=== PATIENT | female | born 1995 | race Caucasian/White ===

== ENCOUNTER 2018-01-26 16:54 | Emergency (ER) | payer OTHER ==
[2018-01-26 17:08] VITALS: O2SAT 100
[2018-01-26] MEDS ORDERED: Sodium Chloride 0.9% 1,000 ML IV STA (17:26)
--- NOTE | 2018-01-26 17:49 | ED PDOC ---
Arrival/HPI - General Chief Complaint: Rib Injury Time Seen by Provider: 01/26/18 16:59 Historian: Patient - History of Present Illness Narrative History of Present Illness (Text): 01/26/18 17:46 23 year old female, with no significant past medical history, who presents to the Emergency Department complaining of left lower rib pain and LUQ pain x 1.5 moths. Patient notes associated upper back pain worse with movement and substernal chest pain associated with the LUQ pain. Patient states there are no other exacerbating or relieving symptoms. Patient describes pain as a poking, pinching sensation. Patient denies any fever, chills, URI, recent illness, shortness of breath, nausea, vomiting, diarrhea, urinary symptoms, neck pain, headache, dizziness, alcohol use, smoking, recent travel, leg pain/swelling, OCP use, or any other complaints. Time/Duration: > month (1.5 months) Symptom Onset: Gradual Symptom Course: Worsening Activities at Onset: Light Past Medical History - Provider Review Nursing Documentation Reviewed: Yes - Psychiatric Hx Substance Use: No Family/Social History - Physician Review Nursing Documentation Reviewed: Yes Family/Social History: Unknown Family HX Smoking Status: Never Smoked Hx Alcohol Use: No Hx Substance Use: No Allergies/Home Meds Allergies/Adverse Reactions: Allergies No Known Allergies Allergy (Verified 01/26/18 17:05) Review of Systems - Physician Review All systems were reviewed & negative as marked: Yes - Review of Systems Constitutional: Normal Eyes: Normal ENT: Normal Respiratory: Normal. absent: SOB, Cough Cardiovascular: Chest Pain (substernal chest pain). absent: Palpitations Gastrointestinal: Abdominal Pain (LUQ pain). absent: Diarrhea, Nausea, Vomiting Genitourinary Female: Normal. absent: Dysuria, Frequency, Hematuria Musculoskeletal: Back Pain (upper back pain), Other (left lower rib pain) Skin: Normal. absent: Rash Neurological: Normal. absent: Headache, Dizziness Endocrine: Normal Hemo/Lymphatic: Normal Psychiatric: Normal Physical Exam Vital Signs Reviewed: Yes Vital Signs Temp Pulse Resp BP Pulse Ox 01/26/18 20:58 64 14 121/68 100 01/26/18 20:04 98.0 F 01/26/18 17:01 98.2 F 80 18 147/82 100 Temperature: Afebrile Blood Pressure: Normal Pulse: Regular Respiratory Rate: Normal Appearance: Positive for: Well-Appearing, Non-Toxic, Comfortable Pain Distress: None Mental Status: Positive for: Alert and Oriented X 3 - Systems Exam Head: Present: Atraumatic, Normocephalic Pupils: Present: PERRL Extroacular Muscles: Present: EOMI Conjunctiva: Present: Normal Mouth: Present: Moist Mucous Membranes Neck: Present: Normal Range of Motion Respiratory/Chest: Present: Clear to Auscultation, Good Air Exchange. No: Respiratory Distress, Accessory Muscle Use Cardiovascular: Present: Regular Rate and Rhythm, Normal S1, S2. No: Murmurs Abdomen: Present: Tenderness (LUQ tenderness). No: Distention, Peritoneal Signs Back: Present: Normal Inspection Upper Extremity: Present: Normal Inspection. No: Cyanosis, Edema Lower Extremity: Present: Normal Inspection. No: Edema Neurological: Present: GCS=15, CN II-XII Intact, Speech Normal Skin: Present: Warm, Dry, Normal Color. No: Rashes Psychiatric: Present: Alert, Oriented x 3, Normal Insight, Normal Concentration Medical Decision Making ED Course and Treatment: 01/26/18 17:52 Impression: 23 year old female presents to the Emergency Department complaining of lft lower rib pain and LUQ pain. Plan: -- EKG -- Labs -- Chest X-ray -- Pepcid -- Toradol -- Sodium Chloride -- Urine Culture -- UA -- POC Urine Prenancy Test -- Reassess and disposition Progress Notes: EKG : NSR at 63 bpm, no acute ST changes, as read by AMANDA. CXR : NAD, as read by AMANDA. Labs reviewed hgb 11, rest of the labs wnl, Uhcg (-), UA +small leuks, urine cx sent. On reevaluation, patient reports improvement of abdominal pain, denies any CP, back pain, N/V, she does c/o pressure like headache to her forehead. On exam, patient remains awake alert and oriented 3 in no acute distress. Abdomen soft minimal LUQ tenderness. Reglan 10 mg IV and benadryl 25 mg IV ordered. PA called to bedside as the patient is c/o throat discomfort with itchy rash to her neck which is starting to spread to the upper chest, which developed after IV benadryl was given, reglan still not given at this time. She denies any facial/tongue swelling, CP or SOB. Patient reports no history of any medication allergies. She also states that she has never taken any Benadryl or any other antihistamines in the past. Patient offered Solu-Medrol IV for allergic reaction to Benadryl, however the patient is refusing at this time. Lab, EKG and CXR results d/w the patient in great detail. Diagnosis of possible dyspepsia d/w the patient. Advised to follow up with primary care physician or referral provided in 1-2 days without fail. Advised to take medication as prescribed - pepcid for dyspepsia and prednisone for allergic reaction. Return to the emergency room at any time for any new or worsening symptoms. Patient states she fully agrees with and understands discharge instructions. States that she agrees with the plan and disposition. Verbalized and repeated discharge instructions and plan. I have given the patient opportunity to ask any additional questions. - Lab Interpretations Lab Results: 01/26/18 17:46 01/26/18 17:46 Lab Results 01/26/18 19:20: Urine Color Yellow, Urine Appearance Clear, Urine pH 6.0, Ur Specific [place] <= 1.005, Urine Protein Negative, Urine Glucose (UA) Negative, Urine Ketones Negative, Urine Blood Trace-intact H, Urine Nitrate Negative, Urine Bilirubin Negative, Urine Urobilinogen 0.2, Ur Leukocyte Esterase Trace H , Urine RBC 5 - 10, Urine WBC 5 - 10, Ur Epithelial Cells 6 - 8 01/26/18 17:46: Beta HCG, Quant < 2.39 01/26/18 17:46: Sodium 138, Potassium 3.6, Chloride 103, Carbon Dioxide 25, Anion Gap 13, BUN 12, Creatinine 0.6 L, Est GFR ( Amer) > 60, Est GFR ( Non-Af Amer) > 60, Random Glucose 87, Calcium 9.5, Magnesium 2.0, Total Bilirubin 0.9, AST 21, ALT 22, Alkaline Phosphatase 43, Total Protein 7.7, Albumin 4.7, Globulin 3.0, Albumin/Globulin Ratio 1.6, Lipase 71 01/26/18 17:46: WBC 4.5, RBC 3.91, Hgb 11.6 L, Hct 32.9 L, MCV 84.1, MCH 29.7, MCHC 35.3, RDW 12.3, Plt Count 257, MPV 10.8, Gran % 51.5, Lymph % (Auto) 36.5 H , [place] % (Auto) 10.5 H, Eos % (Auto) 1.3 L, Baso % (Auto) 0.2, Gran # 2.31, Lymph # (Auto) 1.6, [place] # (Auto) 0.5, Eos # (Auto) 0.1, Baso # (Auto) 0.01 - RAD Interpretation Radiology Orders: 01/26/18 17:27 CHEST TWO VIEWS (PA/LAT) [RAD] Stat - Medication Orders Current Medication Orders: Discontinued Medications Diphenhydramine HCl (Benadryl) 25 mg IVP STAT STA Stop: 01/26/18 19:15 Last Admin: 01/26/18 19:51 Dose: 25 mg IVP Administration Document 01/26/18 19:51 HI (Rec: 01/26/18 19:52 [id number]) Charges for Administration # of IVP Administrations 1 Famotidine (Pepcid) 20 mg IVP STAT STA Stop: 01/26/18 17:27 Last Admin: 01/26/18 17:51 Dose: 20 mg IVP Administration Document 01/26/18 17:51 HI (Rec: 01/26/18 17:51 [place] [id number]) Charges for Administration # of IVP Administrations 1 Sodium Chloride (Sodium Chloride 0.9%) 1,000 mls @ 1,000 mls/hr IV .Q1H STA Stop: 01/26/18 18:25 Last Admin: 01/26/18 17:50 Dose: 1,000 mls/hr eMAR Start Stop Document 01/26/18 17:50 HI (Rec: 01/26/18 17:50 [place] [id number]) Intravenous Solution Start Date 01/26/18 Start Time 17:50 Ketorolac Tromethamine (Toradol) 15 mg IVP STAT STA Stop: 01/26/18 17:27 Last Admin: 01/26/18 17:50 Dose: 15 mg MAR Pain Assessment Document 01/26/18 17:50 HI (Rec: 01/26/18 17:51 [place] [id number]) Pain Reassessment Is this a pain reassessment? No Sleep Is patient sleeping during reassessment? No Presence of Pain Presence of Pain Yes Location Left, Right or Bilateral Left Pain Location Body Site Breast Description Description Constant IVP Administration Document 01/26/18 17:50 HI (Rec: 01/26/18 17:51 [place] [id number]) Charges for Administration # of IVP Administrations 1 Methylprednisolone (Solu-Medrol) 125 mg IVP ONCE ONE Stop: 01/26/18 20:06 Last Admin: 01/26/18 20:14 Dose: Not Given Non-Admin Reason: Patient Refused Metoclopramide HCl (Reglan) 10 mg IVP STAT STA Stop: 01/26/18 19:15 Last Admin: 01/26/18 19:51 Dose: 10 mg IVP Administration Document 01/26/18 19:51 HI (Rec: 01/26/18 19:51 [place] [id number]) Charges for Administration # of IVP Administrations 1 - PA / [employer] / Resident Statement MD/DO has reviewed & agrees with the documentation as recorded. - Scribe Statement The provider has reviewed the documentation as recorded by the Scribe Clarice Fox All medical record entries made by the Scribe were at my direction and personally dictated by me. I have reviewed the chart and agree that the record accurately reflects my personal performance of the history, physical exam, medical decision making, and the department course for this patient. I have also personally directed, reviewed, and agree with the discharge instructions and disposition. Disposition/Present on Arrival - Present on Arrival Any Indicators Present on Arrival: No History of DVT/PE: No History of Uncontrolled Diabetes: No Urinary Catheter: No History of Decub. Ulcer: No History Surgical Site Infection Following: None - Disposition Have Diagnosis and Disposition been Completed?: Yes Diagnosis: Abdominal pain, Dyspepsia Disposition: HOME/ ROUTINE Disposition Time: 20:45 Patient Plan: Discharge Patient Problems: Current Active Problems Problem Status Onset Abdominal pain Acute Dyspepsia Acute Condition: STABLE Discharge Instructions (ExitCare): Dyspepsia, Acute Abdomen (Belly Pain) Additional Instructions: Thank you for letting us take care of you today. You were treated for mental pain, dyspepsia. The emergency medical care you received today was directed at your acute symptoms. If you were prescribed any medication, please fill it and take as directed. It may take several days for your symptoms to resolve. Return to the Emergency Department if your symptoms worsen, do not improve, or if you have any other problems. Please contact your doctor in 2 days for re-evaluation and follow up / or call one of the physicians/clinics you have been referred to that are listed on the Patient Visit Information form that is included in your discharge packet. Bring any paperwork you were given at discharge with you along with any medications you are taking to your follow up visit. Our treatment cannot replace ongoing medical care by a primary care provider (PCP) outside of the emergency department. Thank you for allowing the [facility] team to be part of your care today. If you had an X-Ray: A Radiologist will review the ED reading if any change in treatment is needed we will contact you. If you had a urine culture: It will take several days for the results, if any change in treatment is needed we will contact you. Prescriptions: Famotidine [Pepcid] 40 mg PO DAILY #20 tablet predniSONE [predniSONE Tab] 40 mg PO DAILY #8 tab Referrals: PCP,NO [Primary Care Provider] - [place] up with primary [facility] [place] - Follow up with primary Forms: [employer] (Algerian), WORK NOTE
[2018-01-26 18:16] LABS: ALB/GLOB RATIO 1.6 (1.1-1.8); ALBUMIN 4.7 g/dL (3.0-4.8); ALT/SGPT 22 U/L (7-56); AST/SGOT 21 U/L (14-36); BLOOD UREA NITROGEN 12 mg/dL (7-21); CALCIUM 9.5 mg/dL (8.4-10.5); GFR NON-AFRICAN AMERICAN > 60; LIPASE 71 U/L (23-300)
[2018-01-26 18:21] LABS: BASO # 0.01 K/mm3 (0.0-2.0); BASO % 0.2 % (0.0-3.0); EOS # 0.1 (0.0-0.7); EOS % 1.3 % (1.5-5.0); GRAN # 2.31 (1.4-6.5); GRAN % 51.5 % (50.0-68.0); HEMOGLOBIN 11.6 g/dL (12.0-16.0); LYMPH # 1.6 (1.2-3.4); LYMPH % 36.5 % (22.0-35.0); MEAN CELL VOLUME 84.1 fl (80.0-105.0); MEAN CORPUSCULAR HEMOGLOBIN 29.7 pg (25.0-35.0); MEAN CORPUSCULAR HGB CONC 35.3 g/dl (31.0-37.0); MEAN PLATELET VOLUME 10.8 fl (7.0-11.0); MONO # 0.5 (0.1-0.6); MONO % 10.5 % (1.0-6.0); RBC 3.91 10^6/uL (3.5-6.1); RED CELL DISTRIBUTION WIDTH 12.3 % (11.5-14.5); WHITE BLOOD COUNT 4.5 10^3/ul (4.5-11.0)
[2018-01-26] MEDS ORDERED: DiphenhydrAMINE 50 mg/ml Inj IVP STA (19:14)
[2018-01-26 19:43] LABS: URINE BILIRUBIN NEGATIVE (NEGATIVE); URINE BLOOD TRACE-INTACT (NEGATIVE); URINE GLUCOSE (UA) NEGATIVE (NEGATIVE); URINE LEUKOCYTE ESTERASE TRACE Leu/uL (NEGATIVE); URINE PROTEIN NEGATIVE mg/dL (<30 mg/dL); URINE UROBILINOGEN 0.2 E.U./dL (<1 E.U./dL)
[2018-01-26 19:46] LABS: URINE APPEARANCE CLEAR (CLEAR); URINE COLOR YELLOW (YELLOW)
[2018-01-26 20:04] VITALS: TEMP 98
[2018-01-26 20:59] VITALS: BP 121/68; PULSE 64; RESP 14
--- NOTE | 2018-01-27 07:58 | RAD ---
Date of service: 01/26/2018 HISTORY: LUQ, L rib pain COMPARISON: No prior. TECHNIQUE: Chest PA and lateral FINDINGS: LUNGS: No active pulmonary disease. PLEURA: No significant pleural effusion identified. No pneumothorax apparent. CARDIOVASCULAR: Normal. OSSEOUS STRUCTURES: No significant abnormalities. VISUALIZED UPPER ABDOMEN: Normal. OTHER FINDINGS: None. IMPRESSION: No active disease.
--- NOTE | 2018-01-27 19:57 | CARD ---
APPROVED REPORT Date of service: 01/26/2018 EKG Measurement Heart [id number] <Conclusion> Normal sinus rhythm with sinus arrhythmia Normal ECG
== END 2018-01-26 21:20 | disposition home or self-care (01) ==
LOC: ED 16:54
DX: R10.13 Epigastric pain (principal); R10.12 Left upper quadrant pain
CPT/HCPCS: 71046; 80053; 81001; 83690; 83735; 84702; 85025; 87086; 93005; 96374; 96375; 99284; J1200; J1885; J2765; J7030

== ENCOUNTER 2018-05-07 16:56 | Observation (INO) | payer OTHER ==
[2018-05-07] MEDS ORDERED: Sodium Chloride 0.9% 1,000 ML IV STA (17:50)
--- NOTE | 2018-05-07 19:06 | ED PDOC ---
Arrival/HPI - General Chief Complaint: Chest Pain Historian: Patient - History of Present Illness Narrative History of Present Illness (Text): 05/07/18 19:03 23 year old female, with no significant past medical history, presents to the emergency department complaining of diffuse abdominal pain and rib pain intermittently for 1 week. Patient report of secondary nausea, but denies any vomiting. Patient denies recent travel, fevers, chills, headache, dizziness, chest pain, shortness of breath, dyspnea on exertion, cough, blood in the stool or urine, diarrhea, back pain, neck pain, or any other complaint. Time/Duration: 1 week Symptom Course: Intermittent Activities at Onset: Light Context: Home Past Medical History - Provider Review Nursing Documentation Reviewed: Yes - Infectious Disease Hx of Infectious Diseases: None - Psychiatric Hx Substance Use: No Family/Social History - Physician Review Nursing Documentation Reviewed: Yes Family/Social History: No Known Family HX Smoking Status: Never Smoked Hx Alcohol Use: No Hx Substance Use: No Allergies/Home Meds Allergies/Adverse Reactions: Allergies diphenhydramine [From Benadryl] Allergy (Verified 05/08/18 04:06) ANAPHYLAXIS Review of Systems - Physician Review All systems were reviewed & negative as marked: Yes - Review of Systems Constitutional: absent: Fevers Respiratory: absent: SOB, Cough Cardiovascular: absent: Chest Pain Gastrointestinal: Abdominal Pain, Nausea. absent: Stool Changes, Diarrhea, Vomiting Genitourinary Female: absent: Dysuria, Hematuria Musculoskeletal: absent: Back Pain, Neck Pain Skin: absent: Rash Neurological: absent: Headache, Dizziness Physical Exam Vital Signs Reviewed: Yes Vital Signs Temp Pulse Resp BP Pulse Ox 05/07/18 16:57 98.8 F 96 H 18 111/73 100 Temperature: Afebrile Blood Pressure: Normal Pulse: Tachycardic Respiratory Rate: Normal Appearance: Positive for: Well-Appearing, Non-Toxic, Comfortable Pain Distress: None Mental Status: Positive for: Alert and Oriented X 3 - Systems Exam Head: Present: Atraumatic, Normocephalic Pupils: Present: PERRL Extroacular Muscles: Present: EOMI Conjunctiva: Present: Normal Mouth: Present: Moist Mucous Membranes Neck: Present: Normal Range of Motion Respiratory/Chest: Present: Clear to Auscultation, Good Air Exchange. No: Respiratory Distress, Accessory Muscle Use Cardiovascular: Present: Regular Rate and Rhythm, Normal S1, S2. No: Murmurs Abdomen: Present: Tenderness (diffusely tender to the left sided quadrant), Normal Bowel Sounds. No: Distention, Peritoneal Signs Back: Present: Normal Inspection Upper Extremity: Present: Normal Inspection. No: Cyanosis, Edema Lower Extremity: Present: Normal Inspection. No: Edema Neurological: Present: GCS=15, CN II-XII Intact, Speech Normal Skin: Present: Warm, Dry, Normal Color. No: Rashes Psychiatric: Present: Alert, Oriented x 3, Normal Insight, Normal Concentration Medical Decision Making ED Course and Treatment: 05/07/18 19:08 Impression: 23 year old female who presents to the emergency department complaining of abdominal pain and nausea. Plan: -- CT abdomen and Pelvis -- EKG -- Labs -- IV fluids -- Toradol -- Urine Culture -- Urinalysis -- Reassess and disposition Prior Visits: Notes and results from previous visits were reviewed. Progress Notes: 05/07/18 19:10 Signed out patient to Dr. Christine pending labs, CT, and reevaluation. - Lab Interpretations I have reviewed the lab results: Yes - RAD Interpretation Radiology Orders: 05/07/18 17:50 ABDOMEN & PELVIS [ABD PELVIS PO & IV CONTRAST] [CT] Stat - EKG Interpretation Interpreted by ED Physician: Yes Type: 12 lead EKG - Medication Orders Current Medication Orders: Discontinued Medications Sodium Chloride (Sodium Chloride 0.9%) 1,000 mls @ 999 mls/hr IV .Q1H1M STA Stop: 05/07/18 18:50 Ketorolac Tromethamine (Toradol) 30 mg IVP STAT STA Stop: 05/07/18 17:51 - Scribe Statement The provider has reviewed the documentation as recorded by the Rui Cunningham Provider Scribe Attestation: All medical record entries made by the Scribaubrie were at my direction and personally dictated by me. I have reviewed the chart and agree that the record accurately reflects my personal performance of the history, physical exam, medical decision making, and the department course for this patient. I have also personally directed, reviewed, and agree with the discharge instructions and disposition. Disposition/Present on Arrival - Present on Arrival Any Indicators Present on Arrival: No History of DVT/PE: No History of Uncontrolled Diabetes: No Urinary Catheter: No History of Decub. Ulcer: No History Surgical Site Infection Following: None - Disposition Have Diagnosis and Disposition been Completed?: Yes Diagnosis: Pancolitis Disposition: HOSPITALIZED Disposition Time: 19:00 Condition: GUARDED
--- NOTE | 2018-05-07 19:07 | ED PDOC ---
Physical Exam Vital Signs Temp Pulse Resp BP Pulse Ox 05/07/18 16:57 98.8 F 96 H 18 111/73 100 Medical Decision Making ED Course and Treatment: 05/07/18 19:[address] Anne pending labs, CT a/p, & reevaluation. 05/07/18 20:02 Labs reviewed with no evidence of leukocytosis noted. UA positive for esterases. Pending CT a/p 05/08/18 03:[address] Valencia(house staff) and medical instrument cable fabricator who accepts case onto the hospitalist service. - Lab Interpretations Lab Results: 05/07/18 18:40 05/07/18 18:40 Lab Results 05/07/18 19:25: Urine Color Yellow, Urine Appearance Clear, Urine pH 6.5, Ur Specific [place] 1.015, Urine Protein Negative, Urine Glucose (UA) Negative, Urine Ketones Negative, Urine Blood Negative, Urine Nitrate Negative, Urine Bilirubin Negative, Urine Urobilinogen 0.2, Ur Leukocyte Esterase Trace H, Urine RBC Pending, Urine WBC Pending 05/07/18 18:40: Sodium 137, Potassium 3.8, Chloride 106, Carbon Dioxide 23, Anion Gap 12, BUN 16, Creatinine 0.5 L, Est GFR ( Amer) > 60, Est GFR (Non-Af Amer) > 60, Random Glucose 83, Calcium 9.4, Magnesium 2.0, Total Bilirubin 0.8, AST 23, ALT 26, Alkaline Phosphatase 54, Lactate Dehydrogenase 298 L, Total Creatine Kinase 29 L, Troponin I < 0.01, Total Protein 7.8, Albumin 4.7, Globulin 3.2, Albumin/Globulin Ratio 1.5 05/07/18 18:40: WBC 8.2, RBC 4.26, Hgb 12.5, Hct 35.9 L, MCV 84.3, MCH 29.3, MCHC 34.8, RDW 12.1, Plt Count 258, MPV 10.8, Gran % 69.9 H, Lymph % (Auto) 22.4, [place] % (Auto) 7.0 H, Eos % (Auto) 0.6 L, Baso % (Auto) 0.1, Gran # 5.70, Lymph # (Auto) 1.8, [place] # (Auto) 0.6, Eos # (Auto) 0.1, Baso # (Auto) 0.01 I have reviewed the lab results: Yes - RAD Interpretation Radiology Orders: 05/07/18 17:50 ABDOMEN & PELVIS [ABD PELVIS PO & IV CONTRAST] [CT] Stat - Medication Orders Current Medication Orders: Discontinued Medications Sodium Chloride (Sodium Chloride 0.9%) 1,000 mls @ 999 mls/hr IV .Q1H1M STA Stop: 05/07/18 18:50 Ketorolac Tromethamine (Toradol) 30 mg IVP STAT STA Stop: 05/07/18 17:51 Disposition/Present on Arrival - Present on Arrival Any Indicators Present on Arrival: No History of DVT/PE: No History of Uncontrolled Diabetes: No Urinary Catheter: No History of Decub. Ulcer: No History Surgical Site Infection Following: None - Disposition Have Diagnosis and Disposition been Completed?: Yes Diagnosis: Pancolitis Disposition: HOSPITALIZED Disposition Time: 03:00 Patient Plan: Admission Condition: GUARDED
[2018-05-07 19:18] LABS: BASO # 0.01 K/mm3 (0.0-2.0); BASO % 0.1 % (0.0-3.0); EOS # 0.1 (0.0-0.7); EOS % 0.6 % (1.5-5.0); GRAN # 5.7 (1.4-6.5); GRAN % 69.9 % (50.0-68.0); HEMOGLOBIN 12.5 g/dL (12.0-16.0); LYMPH # 1.8 (1.2-3.4); LYMPH % 22.4 % (22.0-35.0); MEAN CELL VOLUME 84.3 fl (80.0-105.0); MEAN CORPUSCULAR HEMOGLOBIN 29.3 pg (25.0-35.0); MEAN CORPUSCULAR HGB CONC 34.8 g/dl (31.0-37.0); MEAN PLATELET VOLUME 10.8 fl (7.0-11.0); MONO # 0.6 (0.1-0.6); RBC 4.26 10^6/uL (3.5-6.1); RED CELL DISTRIBUTION WIDTH 12.1 % (11.5-14.5); WHITE BLOOD COUNT 8.2 10^3/uL (4.5-11.0)
[2018-05-07 19:34] LABS: PH,URINE 6.5 (4.7-8.0); URINE BILIRUBIN NEGATIVE (NEGATIVE); URINE BLOOD NEGATIVE (NEGATIVE); URINE GLUCOSE (UA) NEGATIVE (NEGATIVE); URINE LEUKOCYTE ESTERASE TRACE Leu/uL (NEGATIVE); URINE PROTEIN NEGATIVE mg/dL (<30 mg/dL); URINE UROBILINOGEN 0.2 E.U./dL (<1 E.U./dL)
[2018-05-07 19:34] LABS: ALB/GLOB RATIO 1.5 (1.1-1.8); ALBUMIN 4.7 g/dL (3.0-4.8); ALT/SGPT 26 U/L (7-56); AST/SGOT 23 U/L (14-36); BLOOD UREA NITROGEN 16 mg/dL (7-21); CALCIUM 9.4 mg/dL (8.4-10.5); GFR NON-AFRICAN AMERICAN > 60
[2018-05-07 19:36] LABS: URINE APPEARANCE CLEAR (CLEAR); URINE COLOR YELLOW (YELLOW)
[2018-05-07 19:43] LABS: TROPONIN I < 0.01 ng/mL
[2018-05-07] MEDS ORDERED: Iohexol 350 MG/100 ML VIAL ONE (19:52)
[2018-05-07] MEDS ORDERED: Iohexol 240 (50 ml) ONE (19:52)
[2018-05-07 20:17] LABS: URINE BACTERIA MOD /hpf; URINE RBC NEGATIVE /hpf (0-2)
--- NOTE | 2018-05-08 03:09 | CP.PCM.HP ---
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 Upon presentation patient reported she has been having worsening abdominal pain in her LLQ, RLQ, and RUQ over the past two weeks. She reported that the pain initially started 1month ago as intermittent however has now presented as chronic in nature. She describes the pain as a sharp sensation with some radiation into her chest/ sternum. She reported she had one episode of grossly bloody stool 1wk ago, denies any further episodes of bloody BM. She also reported episodes of N/V 3 days prior to admission. Denies any change in her apptetite, denies any worsening w/ food, denies any alleviating symptoms. Patient does not clain to have an yfevers or chills. Has not had any urinary discomfort, or diarrhea. She reports her menstrual cycle is regular and last menstruation was 3 weeks balbir or to admission. Remainder of 12 system ROS is otherwise negative PMD: None PMH: Fe Def, Vit D Def Allergies: BENADRYL- ANAPHYLAXIS Social: Denies EtOH, Smoking, Illicit Drugs Home Rx: Vit D PO OTC Present on Admission - Present on Admission Any Indicators Present on Admission: No Review of Systems - Review of Systems All systems: reviewed and no additional remarkable complaints except Review of Systems: as per HPI Past Patient History - Infectious Disease Hx of Infectious Diseases: None - Past Social History Smoking Status: Never Smoked - PSYCHIATRIC Hx Substance Use: No - SURGICAL HISTORY Hx Surgeries: No Meds Allergies/Adverse Reactions: Allergies Allergy/AdvReac Type Severity Reaction Status Date / Time diphenhydramine Allergy ANAPHYLAXIS Verified 05/08/18 04:06 [From Benadryl] Physical Exam - Constitutional Appears: Well, Non-toxic, No Acute Distress - Head Exam Head Exam: ATRAUMATIC, NORMOCEPHALIC - Eye Exam Eye Exam: EOMI, Normal appearance, PERRL - Respiratory Exam Respiratory Exam: Clear to Auscultation Bilateral, NORMAL BREATHING PATTERN - Cardiovascular Exam Cardiovascular Exam: RRR, +S1, +S2 - GI/Abdominal Exam GI & Abdominal Exam: Soft, Tenderness (LUQ, LLQ, RLQ ). absent: Distended, Guarding Additional comments: Marcano's negative No rebound tenderness - Extremities Exam Extremities exam: Positive for: normal inspection, pedal pulses present - Neurological Exam Neurological exam: Alert, CN II-XII Intact, Oriented x3 - Psychiatric Exam Psychiatric exam: Normal Affect, Normal Mood - Skin Skin Exam: Dry, Intact, Normal Color, Warm Results - Vital Signs Recent Vital Signs: Last Vital Signs Temp 98.8 F 05/07/18 16:57 Pulse 96 H 05/07/18 16:57 Resp 18 05/07/18 16:57 BP 111/73 05/07/18 16:57 Pulse Ox 100 05/07/18 16:57 - Labs Result Diagrams: 05/07/18 18:40 05/07/18 18:40 Labs: Laboratory Results - last 24 hr 05/07/18 05/07/18 05/07/18 18:40 18:40 19:25 WBC 8.2 RBC 4.26 Hgb 12.5 Hct 35.9 L MCV 84.3 MCH 29.3 MCHC 34.8 RDW 12.1 Plt Count 258 MPV 10.8 Gran % 69.9 H Lymph % (Auto) 22.4 [place] % (Auto) 7.0 H Eos % (Auto) 0.6 L Baso % (Auto) 0.1 Gran # 5.70 Lymph # (Auto) 1.8 Nash # (Auto) 0.6 Eos # (Auto) 0.1 Baso # (Auto) 0.01 Sodium 137 Potassium 3.8 Chloride 106 Carbon Dioxide 23 Anion Gap 12 BUN 16 Creatinine 0.5 L Est GFR ( Amer) > 60 Est GFR (Non-Af Amer) > 60 Random Glucose 83 Calcium 9.4 Magnesium 2.0 Total Bilirubin 0.8 AST 23 ALT 26 Alkaline Phosphatase 54 Lactate Dehydrogenase 298 L Total Creatine Kinase 29 L Troponin I < 0.01 Total Protein 7.8 Albumin 4.7 Globulin 3.2 Albumin/Globulin Ratio 1.5 Urine Color Yellow Urine Appearance Clear Urine pH 6.5 Ur Specific [place] 1.015 Urine Protein Negative Urine Glucose (UA) Negative Urine Ketones Negative Urine Blood Negative Urine Nitrate Negative Urine Bilirubin Negative Urine Urobilinogen 0.2 Ur Leukocyte Esterase Trace H Urine RBC Negative Urine WBC 10 - 15 H Ur Epithelial Cells 4 - 5 Urine Bacteria Mod Assessment & Plan - Assessment and Plan (Free Text) Assessment: Patient is a 23F w/ no significant PMH presented to [facility] on 05/08/18 w/ CC of abdominal pain. Plan: Abdominal Pain: Most likely 2/2 pancolitis vs ovarian cyst Afebrile, No leukocytosis, Abdomen Soft w/ mild tenderness on exam 05/07/17 - CTAP - Pancolitis + 1.5cm ovarian cyst NPO IVF - NS 100 cc/hr Start Flagyl 500mg Q8 Start Rocephin 1gm QD Stool occult blood Fecal Leukocyte GI Consulted, Dr. Encarnacion, [facility] Patient was seen, examined, discussed w/ attending Dr. 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 Admission Note - Date & Time Date: 05/08/18 Time: 03:27 <Arleth Valencia - Last Filed: 05/08/18 05:42> Results - Vital Signs Recent Vital Signs: Last Vital Signs Temp 97.9 F 05/08/18 03:22 Pulse 79 05/08/18 03:22 Resp 20 05/08/18 03:22 BP 116/69 05/08/18 03:22 Pulse Ox 100 05/08/18 03:22 - Labs Result Diagrams: 05/07/18 18:40 05/07/18 18:40 Labs: Laboratory Results - last 24 hr 05/07/18 05/07/18 05/07/18 18:40 18:40 19:25 WBC 8.2 RBC 4.26 Hgb 12.5 Hct 35.9 L MCV 84.3 MCH 29.3 MCHC 34.8 RDW 12.1 Plt Count 258 MPV 10.8 Gran % 69.9 H Lymph % (Auto) 22.4 [place] % (Auto) 7.0 H Eos % (Auto) 0.6 L Baso % (Auto) 0.1 Gran # 5.70 Lymph # (Auto) 1.8 Nash # (Auto) 0.6 Eos # (Auto) 0.1 Baso # (Auto) 0.01 Sodium 137 Potassium 3.8 Chloride 106 Carbon Dioxide 23 Anion Gap 12 BUN 16 Creatinine 0.5 L Est GFR ( Amer) > 60 Est GFR (Non-Af Amer) > 60 Random Glucose 83 Calcium 9.4 Magnesium 2.0 Total Bilirubin 0.8 AST 23 ALT 26 Alkaline Phosphatase 54 Lactate Dehydrogenase 298 L Total Creatine Kinase 29 L Troponin I < 0.01 Total Protein 7.8 Albumin 4.7 Globulin 3.2 Albumin/Globulin Ratio 1.5 Urine Color Yellow Urine Appearance Clear Urine pH 6.5 Ur Specific [place] 1.015 Urine Protein Negative Urine Glucose (UA) Negative Urine Ketones Negative Urine Blood Negative Urine Nitrate Negative Urine Bilirubin Negative Urine Urobilinogen 0.2 Ur Leukocyte Esterase Trace H Urine RBC Negative Urine WBC 10 - 15 H Ur Epithelial Cells 4 - 5 Urine Bacteria Mod Attending/Attestation - Attestation I have personally seen and examined this patient.: Yes I have fully participated in the care of the patient.: Yes I have reviewed all pertinent clinical information: Yes Notes (Text): 05/08/18 05:40 Patient was seen when she was in the ER in CODE Room. Medical record was reviewed. Agree with history , physical examination, assessment and plan.
[2018-05-08] MEDS: Sodium Chloride 0.9% 1,000 ML IV SCH (03:30)
[2018-05-08 03:46] VITALS: BMI 18.0
[2018-05-08] MEDS ORDERED: metroNIDAZOLE IV 500 mg/100 ml 500 MG/100 ML BAG IVPB SCH (06:00)
[2018-05-08 07:06] LABS: BASO # 0.01 K/mm3 (0.0-2.0); BASO % 0.2 % (0.0-3.0); EOS # 0.1 (0.0-0.7); EOS % 1.2 % (1.5-5.0); GRAN # 3.79 (1.4-6.5); GRAN % 57.7 % (50.0-68.0); HEMOGLOBIN 10.7 g/dL (12.0-16.0); LYMPH # 2.1 (1.2-3.4); LYMPH % 32.1 % (22.0-35.0); MEAN CELL VOLUME 84.2 fl (80.0-105.0); MEAN CORPUSCULAR HEMOGLOBIN 28.7 pg (25.0-35.0); MEAN CORPUSCULAR HGB CONC 34.1 g/dl (31.0-37.0); MEAN PLATELET VOLUME 10.4 fl (7.0-11.0); MONO # 0.6 (0.1-0.6); MONO % 8.8 % (1.0-6.0); RBC 3.73 10^6/uL (3.5-6.1); RED CELL DISTRIBUTION WIDTH 12.1 % (11.5-14.5); WHITE BLOOD COUNT 6.6 10^3/uL (4.5-11.0)
[2018-05-08 07:34] LABS: ALB/GLOB RATIO 1.4 (1.1-1.8); ALBUMIN 3.8 g/dL (3.0-4.8); ALT/SGPT 33 U/L (7-56); AST/SGOT 17 U/L (14-36); BLOOD UREA NITROGEN 12 mg/dL (7-21); CALCIUM 8.6 mg/dL (8.4-10.5); GFR NON-AFRICAN AMERICAN > 60
[2018-05-08] MEDS: Morphine 2 mg/ml ISec IVP PRN ×3 (08:47→19:51)
--- NOTE | 2018-05-08 09:09 | CARD ---
APPROVED REPORT Date of service: 05/07/2018 EKG Measurement Heart [id number] <Conclusion> Normal sinus rhythm with sinus arrhythmia RSR' Pattern V1,V2.
--- NOTE | 2018-05-08 09:30 | CP.PCM.CON ---
<Vijay Bob - Last Filed: 05/08/18 18:40> History of Present Illness - History of Present Illness History of Present Illness: Vijay Bob DO, PGY1. GI consult note for Dr Shashank Oliveira: diffuse abdominal pain 23 y/o female with PMH of vitamin D and iron deficiency (on supplements) [place] [facility] [place] diffuse abdominal pain x1 month and bloody diarrhea x1. Patient sates that her pain is diffuse mainly in lower abdomen b/l, 6-7/10, sharp/burning in quality, sporadic, lasts for few seconds, intermittent, no radiation, not related to food ingestion, no alleviating or e xacerbating factors and associated nausea. She reports having one episode of bloody diarrhea last week. Patient denied vomiting, hemetemesis, melena, fever, chills, abdominal distension, changes in bowel movement. She denied prior symptoms, NSAID use, recent travel or sick contacts. ROS reviewed with pertinent positives as above PMH: vitamin D and iron deficiency PSH: denied Meds: vitamin D, Iron All: diphenhydramine (anaphylaxis) SH: denies smoking, alcohol, drug use FH: no h/o colon ca. aunt with breast ca. uncle with lung ca Endo: never had EGD/CSPY Past Patient History - Infectious Disease Hx of Infectious Diseases: None - Past Social History Smoking Status: Never Smoked - CARDIAC Hx Cardiac Disorders: No - PULMONARY Hx Respiratory Disorders: No - NEUROLOGICAL Hx Neurological Disorder: No - HEENT Hx HEENT Problems: No - RENAL Hx Chronic Kidney Disease: No - ENDOCRINE/METABOLIC Hx Endocrine Disorders: No - HEMATOLOGICAL/ONCOLOGICAL Hx Blood Disorders: No - INTEGUMENTARY Hx Dermatological Problems: No - MUSCULOSKELETAL/RHEUMATOLOGICAL Hx Musculoskeletal Disorders: No Hx Falls: No - GASTROINTESTINAL Hx Gastrointestinal Disorders: No - GENITOURINARY/GYNECOLOGICAL Hx Genitourinary Disorders: No - PSYCHIATRIC Hx Substance Use: No - SURGICAL HISTORY Hx Surgeries: No Meds Allergies/Adverse Reactions: Allergies Allergy/AdvReac Type Severity Reaction Status Date / Time diphenhydramine Allergy ANAPHYLAXIS Verified 05/08/18 04:06 [From Benadryl] - Medications Medications: Current Medications Acetaminophen (Tylenol 325mg Tab) 650 mg PO Q6H PRN PRN Reason: Pain, Mild (1-3) Last Admin: 05/08/18 08:38 Dose: 650 mg Metronidazole (Flagyl) 500 mg in 100 mls @ 100 mls/hr IVPB Q8 [facility]; Protocol Last Admin: 05/08/18 05:48 Dose: 100 mls/hr Ceftriaxone Sodium (Rocephin 1 Gram Ivpb) 1 gm in 100 mls @ 100 mls/hr IVPB DAILY [facility]; Protocol Last Admin: 05/08/18 08:59 Dose: 100 mls/hr Sodium Chloride (Sodium Chloride 0.9%) 1,000 mls @ 100 mls/hr IV .Q10H [facility] Last Admin: 05/08/18 03:30 Dose: 100 mls/hr Morphine Sulfate (Morphine) 2 mg IVP Q4H PRN PRN Reason: Pain, severe (8-10) Last Admin: 05/08/18 08:47 Dose: 2 mg Ondansetron HCl (Zofran Inj) 4 mg IVP Q6H PRN PRN Reason: Nausea/Vomiting Last Admin: 05/08/18 08:47 Dose: 4 mg Pantoprazole Sodium (Protonix Inj) 40 mg IVP DAILY [facility] Last Admin: 05/08/18 08:55 Dose: 40 mg Physical Exam - Constitutional Appears: Well - Head Exam Head Exam: ATRAUMATIC, NORMAL INSPECTION, NORMOCEPHALIC - Eye Exam Eye Exam: EOMI, Normal appearance, PERRL Pupil Exam: NORMAL ACCOMODATION, PERRL - ENT Exam ENT Exam: Mucous Membranes Moist, Normal Exam - Neck Exam Neck exam: Positive for: Normal Inspection - Respiratory Exam Respiratory Exam: Clear to Auscultation Bilateral, NORMAL BREATHING PATTERN - Cardiovascular Exam Cardiovascular Exam: REGULAR RHYTHM, +S1, +S2. absent: Gallop, Rubs - GI/Abdominal Exam GI & Abdominal Exam: Normal Bowel Sounds, Soft. absent: Tenderness - Extremities Exam Extremities exam: Positive for: normal inspection - Back Exam Back exam: NORMAL INSPECTION - Neurological Exam Neurological exam: Alert, CN II-XII Intact, Oriented x3, Reflexes Normal - Psychiatric Exam Psychiatric exam: Normal Affect, Normal Mood - Skin Skin Exam: Dry, Intact, Normal Color, Warm Results - Vital Signs Recent Vital Signs: Last Vital Signs Temp 98 F 05/08/18 08:25 Pulse 70 05/08/18 08:25 Resp 18 05/08/18 08:25 BP 99/64 L 05/08/18 08:25 Pulse Ox 97 05/08/18 08:25 - Labs Result Diagrams: 05/08/18 06:45 05/08/18 06:45 Labs: Laboratory Results - last 24 hr 05/07/18 05/07/18 05/07/18 18:40 18:40 19:25 WBC 8.2 RBC 4.26 Hgb 12.5 Hct 35.9 L MCV 84.3 MCH 29.3 MCHC 34.8 RDW 12.1 Plt Count 258 MPV 10.8 Gran % 69.9 H Lymph % (Auto) 22.4 [place] % (Auto) 7.0 H Eos % (Auto) 0.6 L Baso % (Auto) 0.1 Gran # 5.70 Lymph # (Auto) 1.8 [place] # (Auto) 0.6 Eos # (Auto) 0.1 Baso # (Auto) 0.01 Sodium 137 Potassium 3.8 Chloride 106 Carbon Dioxide 23 Anion Gap 12 BUN 16 Creatinine 0.5 L Est GFR ( Amer) > 60 Est GFR (Non-Af Amer) > 60 Random Glucose 83 Calcium 9.4 Phosphorus Magnesium 2.0 Total Bilirubin 0.8 AST 23 ALT 26 Alkaline Phosphatase 54 Lactate Dehydrogenase 298 L Total Creatine Kinase 29 L Troponin I < 0.01 Total Protein 7.8 Albumin 4.7 Globulin 3.2 Albumin/Globulin Ratio 1.5 Urine Color Yellow Urine Appearance Clear Urine pH 6.5 Ur Specific [place] 1.015 Urine Protein Negative Urine Glucose (UA) Negative Urine Ketones Negative Urine Blood Negative Urine Nitrate Negative Urine Bilirubin Negative Urine Urobilinogen 0.2 Ur Leukocyte Esterase Trace H Urine RBC Negative Urine WBC 10 - 15 H Ur Epithelial Cells 4 - 5 Urine Bacteria Mod 05/08/18 05/08/18 06:45 06:45 WBC 6.6 RBC 3.73 Hgb 10.7 L Hct 31.4 L MCV 84.2 MCH 28.7 MCHC 34.1 RDW 12.1 Plt Count 216 MPV 10.4 Gran % 57.7 Lymph % (Auto) 32.1 [place] % (Auto) 8.8 H Eos % (Auto) 1.2 L Baso % (Auto) 0.2 Gran # 3.79 Lymph # (Auto) 2.1 [place] # (Auto) 0.6 Eos # (Auto) 0.1 Baso # (Auto) 0.01 Sodium 136 Potassium Chloride 107 Carbon Dioxide 22 Anion Gap BUN 12 Creatinine 0.6 L Est GFR ( Amer) > 60 Est GFR (Non-Af Amer) > 60 Random Glucose 76 Calcium 8.6 Phosphorus 3.7 Magnesium 1.9 Total Bilirubin 1.2 AST 17 ALT 33 Alkaline Phosphatase 43 Lactate Dehydrogenase Total Creatine Kinase Troponin I Total Protein 6.5 Albumin 3.8 Globulin 2.7 Albumin/Globulin Ratio 1.4 Urine Color Urine Appearance Urine pH Ur Specific [place] Urine Protein Urine Glucose (UA) Urine Ketones Urine Blood Urine Nitrate Urine Bilirubin Urine Urobilinogen Ur Leukocyte Esterase Urine RBC Urine WBC Ur Epithelial Cells Urine Bacteria Assessment & Plan - Assessment and Plan (Free Text) Assessment: 23 y/o female with PMH of vitamin D and iron deficiency (on supplements) [place] [facility] [place] diffuse abdominal pain x1 month and bloody diarrhea x1 Plan: -CT A/P shows pancolitis -flex sigmoiscopy 05/08/17 shows no sigmoid, rectal or ascending descending colon gross pathology. f/u biopsies. mild internal/external hemorrhoid found -recommended full CSPY as outpatient -patient's symptoms likely due to constipation. bleeding could be due to hemorrhoids -patient can be discharged on miralax, colace for constipation -start pantoprazole for GERD -follow up outpatient -clear liquid diet for now. advance as tolerated Case reviewed and plan discussed with Dr Shashank Bob DO, PGY1 Case reviewed and plan discussed with Dr Shashank Bob DO <Glenda Encarnacion V - Last Filed: 05/09/18 00:02> Meds - Medications Medications: Current Medications Acetaminophen (Tylenol 325mg Tab) 650 mg PO Q6H PRN PRN Reason: Pain, Mild (1-3) Last Admin: 05/08/18 08:38 Dose: 650 mg Docusate Sodium (Colace) 100 mg PO BID [facility] Last Admin: 05/08/18 18:34 Dose: Not Given Sodium Chloride (Sodium Chloride 0.9%) 1,000 mls @ 100 mls/hr IV .Q10H [facility] Last Admin: 05/08/18 03:30 Dose: 100 mls/hr Morphine Sulfate (Morphine) 2 mg IVP Q4H PRN PRN Reason: Pain, severe (8-10) Last Admin: 05/08/18 19:51 Dose: 2 mg Ondansetron HCl (Zofran Inj) 4 mg IVP Q6H PRN PRN Reason: Nausea/Vomiting Last Admin: 05/08/18 08:47 Dose: 4 mg Pantoprazole Sodium (Protonix Inj) 40 mg IVP DAILY [facility] Last Admin: 05/08/18 08:55 Dose: 40 mg Results - Vital Signs Recent Vital Signs: Last Vital Signs Temp 98.3 F 05/08/18 17:19 Pulse 75 05/08/18 17:19 Resp 18 05/08/18 17:19 BP 110/63 05/08/18 17:19 Pulse Ox 100 05/08/18 17:19 - Labs Result Diagrams: 05/08/18 06:45 05/08/18 06:45 Labs: Laboratory Results - last 24 hr 05/08/18 05/08/18 06:45 06:45 WBC 6.6 RBC 3.73 Hgb 10.7 L Hct 31.4 L MCV 84.2 MCH 28.7 MCHC 34.1 RDW 12.1 Plt Count 216 MPV 10.4 Gran % 57.7 Lymph % (Auto) 32.1 [place] % (Auto) 8.8 H Eos % (Auto) 1.2 L Baso % (Auto) 0.2 Gran # 3.79 Lymph # (Auto) 2.1 [place] # (Auto) 0.6 Eos # (Auto) 0.1 Baso # (Auto) 0.01 Sodium 136 Potassium 3.6 Chloride 107 Carbon Dioxide 22 Anion Gap 11 BUN 12 Creatinine 0.6 L Est GFR ( Amer) > 60 Est GFR (Non-Af Amer) > 60 Random Glucose 76 Calcium 8.6 Phosphorus 3.7 Magnesium 1.9 Total Bilirubin 1.2 AST 17 ALT 33 Alkaline Phosphatase 43 Total Protein 6.5 Albumin 3.8 Globulin 2.7 Albumin/Globulin Ratio 1.4 Attending/Attestation - Attestation I have personally seen and examined this patient.: Yes I have fully participated in the care of the patient.: Yes I have reviewed all pertinent clinical information: Yes Notes (Text): This is an addendum to GI consult report dictated by the Anesthesiology Tech. The patient was seen and evaluated earlier. Medical records, lab studies, imagings were reviewed. Last 24 hours events reviewed. Agreed with the above treatment plan as outlined in Anesthesiology Tech 's notes with the addition of the following this patient had intermittent episodes of abdominal pain for nearly a month Worsening of the symptoms the last 2 weeks Patient noticed bright red blood per rectum and presented to the emergency room. Patient would benefit from flexible sigmoidoscopy Informed consent was obtained 05/09/18 00:00
[2018-05-08] MEDS ORDERED: cefTRIAXone 1 gm 1 GM/100 ML BAG IVPB SCH (10:00)
[2018-05-08] MEDS ORDERED: Lidocaine 2% Jelly (30 ml) ONE (10:58)
--- NOTE | 2018-05-08 11:11 | CT ---
Date of service: 05/07/2018 PROCEDURE: CT Abdomen and Pelvis with contrast HISTORY: diffuse abdominal pain COMPARISON: None. TECHNIQUE: Contrast dose: 100 cc of Omni 350 Radiation dose: Total exam DLP = 231.66 mGy-cm. This CT exam was performed using one or more of the following dose reduction techniques: Automated exposure control, adjustment of the mA and/or kV according to patient size, and/or use of iterative reconstruction technique. FINDINGS: LOWER THORAX: Unremarkable. LIVER: Unremarkable. No gross lesion or ductal dilatation. GALLBLADDER AND BILE DUCTS: Unremarkable. PANCREAS: Unremarkable. No gross lesion or ductal dilatation. SPLEEN: Unremarkable. ADRENALS: Unremarkable. No mass. KIDNEYS AND URETERS: Unremarkable. No hydronephrosis. No solid mass. VASCULATURE: Unremarkable. No aortic aneurysm. No aortic atherosclerotic calcification or mural plaque present. BOWEL: There is some mild mural thickening in the rectosigmoid which may represent a localized colitis. There is no evidence of olivares colitis APPENDIX: Normal appendix. PERITONEUM: Unremarkable. No free fluid. No free air. LYMPH NODES: Unremarkable. No enlarged lymph nodes. BLADDER: Unremarkable. REPRODUCTIVE: Unremarkable. BONES: No acute fracture. OTHER FINDINGS: There is a discrepancy with the initial [facility] report. They reported diffuse olivares colitis. I disagree with this finding. There is mild mucosal thickening in the rectosigmoid colon but the remainder the colon is unremarkable. The findings were discussed with Dr. Delgado at 11 a.m. 05/08/2018 IMPRESSION: Mild mucosal thickening in the rectosigmoid which may represent a localized colitis.
[2018-05-08] MEDS ORDERED: POLYETHYLENE GLYCOL 3350 17 GM/Dose PACKET PO ONE (13:35)
[2018-05-09 06:29] LABS: BASO # 0.01 K/mm3 (0.0-2.0); BASO % 0.2 % (0.0-3.0); EOS # 0.1 (0.0-0.7); EOS % 1.6 % (1.5-5.0); GRAN # 2.8 (1.4-6.5); GRAN % 56.3 % (50.0-68.0); HEMOGLOBIN 10.4 g/dL (12.0-16.0); LYMPH # 1.6 (1.2-3.4); LYMPH % 32.9 % (22.0-35.0); MEAN CELL VOLUME 85.2 fl (80.0-105.0); MEAN PLATELET VOLUME 10.7 fl (7.0-11.0); MONO # 0.5 (0.1-0.6); RBC 3.59 10^6/uL (3.5-6.1); RED CELL DISTRIBUTION WIDTH 12.1 % (11.5-14.5)
[2018-05-09 07:17] LABS: ALB/GLOB RATIO 1.5 (1.1-1.8); ALBUMIN 3.8 g/dL (3.0-4.8); ALT/SGPT 30 U/L (7-56); AST/SGOT 18 U/L (14-36); BLOOD UREA NITROGEN 9 mg/dL (7-21); CALCIUM 8.8 mg/dL (8.4-10.5); GFR NON-AFRICAN AMERICAN > 60
[2018-05-09 08:28] VITALS: O2SAT 99
[2018-05-09] MEDS: Sodium Chloride 0.9% 1,000 ML IV SCH (10:00)
--- NOTE | 2018-05-09 14:03 | CP.PCM.DIS ---
Provider - Provider Date of Admission: 05/08/18 01:28 Attending physician: Bailee Avilez DO Primary care physician: ABRIL PRIMARY CARE PROVIDER Consults: 05/08/18 03:22 Gastroenterology Consult Routine Comment: Consulting Provider: Glenda Encarnacion V Consulting Physician: Glenda Encarnacion V Reason for Consult: Colitis Time Spent in preparation of Discharge (in minutes): 41 Diagnosis - Discharge Diagnosis (1) Constipation Status: Resolved Priority: High Hospital Course - Lab Results Lab Results: Micro Results 05/07/18 19:25 Urine Urine Culture - Final No Growth (<1,000 CFU/ML) Most Recent Lab Values WBC 5.0 10^3/uL (4.5-11.0) D 05/09/18 05:44 RBC 3.59 10^6/uL (3.5-6.1) 05/09/18 05:44 Hgb 10.4 g/dL (12.0-16.0) L 05/09/18 05:44 Hct 30.6 % (36.0-48.0) L 05/09/18 05:44 MCV 85.2 fl (80.0-105.0) 05/09/18 05:44 MCH 29.0 pg (25.0-35.0) 05/09/18 05:44 MCHC 34.0 g/dl (31.0-37.0) 05/09/18 05:44 RDW 12.1 % (11.5-14.5) 05/09/18 05:44 Plt Count 190 10^3/uL (120.0-450.0) 05/09/18 05:44 MPV 10.7 fl (7.0-11.0) 05/09/18 05:44 Gran % 56.3 % (50.0-68.0) 05/09/18 05:44 Lymph % (Auto) 32.9 % (22.0-35.0) 05/09/18 05:44 Chicot % (Auto) 9.0 % (1.0-6.0) H 05/09/18 05:44 Eos % (Auto) 1.6 % (1.5-5.0) 05/09/18 05:44 Baso % (Auto) 0.2 % (0.0-3.0) 05/09/18 05:44 Gran # 2.80 (1.4-6.5) 05/09/18 05:44 Lymph # (Auto) 1.6 (1.2-3.4) 05/09/18 05:44 Chicot # (Auto) 0.5 (0.1-0.6) 05/09/18 05:44 Eos # (Auto) 0.1 (0.0-0.7) 05/09/18 05:44 Baso # (Auto) 0.01 K/mm3 (0.0-2.0) 05/09/18 05:44 Sodium 136 mmol/L (132-148) 05/09/18 05:44 Potassium 3.9 mmol/L (3.6-5.0) 05/09/18 05:44 Chloride 108 mmol/L (98-107) H 05/09/18 05:44 Carbon Dioxide 23 mmol/L (21-33) 05/09/18 05:44 Anion Gap 9 (10-20) L 05/09/18 05:44 BUN 9 mg/dL (7-21) 05/09/18 05:44 Creatinine 0.6 mg/dl (0.7-1.2) L 05/09/18 05:44 Est GFR ( Amer) > 60 05/09/18 05:44 Est GFR (Non-Af Amer) > 60 05/09/18 05:44 Random Glucose 73 mg/dL (70-110) 05/09/18 05:44 Calcium 8.8 mg/dL (8.4-10.5) 05/09/18 05:44 Phosphorus 3.7 mg/dL (2.5-4.5) 05/08/18 06:45 Magnesium 1.9 mg/dL (1.7-2.2) 05/08/18 06:45 Total Bilirubin 1.1 mg/dL (0.2-1.3) 05/09/18 05:44 AST 18 U/L (14-36) 05/09/18 05:44 ALT 30 U/L (7-56) 05/09/18 05:44 Alkaline Phosphatase 42 U/L (38-126) 05/09/18 05:44 Lactate Dehydrogenase 298 U/L (333-699) L 05/07/18 18:40 Total Creatine Kinase 29 U/L (35-230) L 05/07/18 18:40 Troponin I < 0.01 ng/mL 05/07/18 18:40 Total Protein 6.4 g/dL (5.8-8.3) 05/09/18 05:44 Albumin 3.8 g/dL (3.0-4.8) 05/09/18 05:44 Globulin 2.6 gm/dL 05/09/18 05:44 Albumin/Globulin Ratio 1.5 (1.1-1.8) 05/09/18 05:44 Urine Color Yellow (YELLOW) 05/07/18 19:25 Urine Appearance Clear (CLEAR) 05/07/18 19:25 Urine pH 6.5 (4.7-8.0) 05/07/18 19:25 Ur Specific Stafford 1.015 (1.005-1.035) 05/07/18 19:25 Urine Protein Negative mg/dL (<30 mg/dL) 05/07/18 19:25 Urine Glucose (UA) Negative mg/dL (NEGATIVE) 05/07/18 19:25 Urine Ketones Negative mg/dL (NEGATIVE) 05/07/18 19:25 Urine Blood Negative (NEGATIVE) 05/07/18 19:25 Urine Nitrate Negative (NEGATIVE) 05/07/18 19:25 Urine Bilirubin Negative (NEGATIVE) 05/07/18 19:25 Urine Urobilinogen 0.2 E.U./dL (<1 E.U./dL) 05/07/18 19:25 Ur Leukocyte Esterase Trace Wilian/uL (NEGATIVE) H 05/07/18 19:25 Urine RBC Negative /hpf (0-2) 05/07/18 19:25 Urine WBC 10 - 15 /hpf (0-6) H 05/07/18 19:25 Ur Epithelial Cells 4 - 5 /hpf (0-5) 05/07/18 19:25 Urine Bacteria Mod /hpf (NONE) 05/07/18 19:25 - Hospital Course Hospital Course: CC: Abd pain Patient is a 23F w/no significant PMH presented to [facility] [place] ED on 05/08/18 w/ CC of abdominal pain. Upon presentation patient reported she has been having worsening abdominal pain in her LLQ, RLQ, and RUQ over the past two weeks. She reported that the pain initially started 1month ago as intermittent however has now presented as chronic in nature. She describes the pain as a sharp sensation with some radiation into her chest/ sternum. She reported she had one episode of grossly bloody stool 1wk ago, denies any further episodes of bloody BM. She also reported episodes of N/V 3 days prior to admission. Denies any change in her apptetite, denies any worsening w/ food, denies any alleviating symptoms. Patient does not clain to have an yfevers or chills. Has not had any urinary discomfort, or diarrhea. She reports her menstrual cycle is regular and last menstruation was 3 weeks prior to admission. Remainder of 12 system ROS is otherwise negative PMD: None PMH: Fe Def, Vit D Def Allergies: BENADRYL- ANAPHYLAXIS Social: Denies EtOH, Smoking, Illicit Drugs Home Rx: Vit D PO OTC Fam Hx: Patient denies any family history of colon related illness, Reports Grand mother w/ kidney stone, Aunt w/ breast Ca, No hx of auto-immune disorders reported HOSPITAL COURSE: Mrs Mccray was worked up for her abdominal pain. A CT abd/pelvis with po and iv contrast was performed - the initial virtual radiology read stated pancolitis which was incorrect - our inhouse radiologist identified "mild mucosal thickening in the rectosigmoid which may represent a localized colitis." A IBD panel was also ordered which had not returned at the time of this writing. Mrs Mccray's pain was treated with morphine and tylenol. She was given a bland diet which she tolerated well. GI, Dr Encarnacion, was consulted who performed a flexible sigmoidoscopy 05/08/2018 which showed "the rectum and sigmoid colon are normal - biopsied; non-bleeding external and internal hemorrhoids". The pathology of the tissues biopsied from the sigmoid and rectum showed "fragments of benign rectal mucosa with preserved glandular architecture, edema and focal lymphoid aggregates, no active inflammation identified, no increase in intraepithelial lymphocytes". Per GI her episode of blood is likely due to her hemorrhoids. There was also redundant colon seen on the flexible sigmoidoscopy which could be due to constipation. Per GI, her symptom of abdominal pain could be due to constipation - they recommended stool softeners. However a outpatient colonoscopy was recommended to rule out other serious pathology. She also had GERD like symptoms which as treated with protonix 40mg IVP qd - she was given a script for this medication on discharge. An abdominal ultrasound was ordered with the preliminary read being normal. She will follow-up the official results when she see's Dr Encarnacion outpatient. Discharge Exam - Head Exam Head Exam: ATRAUMATIC, NORMAL INSPECTION, NORMOCEPHALIC - Eye Exam Eye Exam: EOMI, Normal appearance, PERRL - ENT Exam ENT Exam: Mucous Membranes Moist - Neck Exam Neck exam: Full Rom, Normal Inspection - Respiratory Exam Respiratory Exam: Clear to PA & Lateral, NORMAL BREATHING PATTERN, UNREMARKABLE. absent: Rales, Rhonchi, Wheezes - Cardiovascular Exam Cardiovascular Exam: REGULAR RHYTHM, +S1, +S2. absent: JVD, Systolic Murmur - GI/Abdominal Exam GI & Abdominal Exam: Normal Bowel Sounds, Soft, Tenderness. absent: Distended, Firm, Guarding, Hernia, Organomegaly, Rebound, Rigid Additional comments: mild epigastric tenderness to deep palpation - Extremities Exam Extremities exam: full ROM, normal capillary refill, pedal pulses present - Neurological Exam Neurological exam: Alert, Oriented x3 - Psychiatric Exam Psychiatric exam: Normal Affect, Normal Mood - Skin Skin Exam: Dry, Intact, Normal Color, Warm Discharge Plan - Discharge Medications Prescriptions: Pantoprazole [Protonix] 40 mg PO DAILY #30 ect - Follow Up Plan Condition: GUARDED Disposition: HOME/ ROUTINE Instructions: Constipation, Adult (DC), Acid Reflux (Gastroesophageal Reflux Disease), Adult (DC) Additional Instructions: Please follow-up with Vehicle Check In Clerk, Dr Encarnacion, within 3-5 days so he further monitor your course. It is recommended you get a colonoscopy in the near future. Please visit Dr Encarnacion so this can be scheduled. Please take over the counter Miralax and over the counter Colace to treat constipation ONLY NEEDED. Please take the following medication as instructed (we will be providing you a script): 1. Protonix 40mg once a day before breakfast Please STOP taking the pepcid. Please establish care with a Primary Medical Doctor so he/she may monitor your overall health. Please call your insurance provider and check which Primary Medical Doctors in the area will accept your insurance. If symptoms return, please go to your nearest emergency department. Referrals: PCP,NO [Primary Care Provider] - Glenda Encarnacion MD [Medical Doctor] -
--- NOTE | 2018-05-09 15:17 | CP.PCM.PN ---
Subjective - Date & Time of Evaluation Date of Evaluation: 05/09/18 Time of Evaluation: 11:20 - Subjective Subjective: S&E at bedside earlier today, chart reviewed. No acute overnight events. Had flexsig yesterday, no acute findings, pathology reveal benign changes, negative for active inflammation. C/o epigastric discomfort, bloating , mostly after eat ing. No N/V. no fever or chills, have BM, small amount, no diarrhea or overt GI bleeding. Mother at bedside. Objective - Vital Signs/Intake and Output Vital Signs (last 24 hours): Temp Pulse Resp BP Pulse Ox 98.2 F 63 19 102/59 L 99 05/09/18 08:28 05/09/18 08:28 05/09/18 08:28 05/09/18 08:28 05/09/18 08:28 Intake and Output: 05/09/18 05/09/18 06:59 18:59 Intake Total 1920 Balance 1920 - Medications Medications: Current Medications Acetaminophen (Tylenol 325mg Tab) 650 mg PO Q6H PRN PRN Reason: Pain, Mild (1-3) Last Admin: 05/09/18 01:54 Dose: 650 mg Docusate Sodium (Colace) 100 mg PO BID [facility] Last Admin: 05/09/18 09:59 Dose: 100 mg Sodium Chloride (Sodium Chloride 0.9%) 1,000 mls @ 100 mls/hr IV .Q10H [facility] Last Admin: 05/09/18 10:00 Dose: 100 mls/hr Morphine Sulfate (Morphine) 2 mg IVP Q4H PRN PRN Reason: Pain, severe (8-10) Last Admin: 05/08/18 19:51 Dose: 2 mg Ondansetron HCl (Zofran Inj) 4 mg IVP Q6H PRN PRN Reason: Nausea/Vomiting Last Admin: 05/08/18 08:47 Dose: 4 mg Pantoprazole Sodium (Protonix Inj) 40 mg IVP DAILY [facility] Last Admin: 05/09/18 09:59 Dose: 40 mg - Labs Labs: 05/09/18 05:44 05/09/18 05:44 - Constitutional Appears: No Acute Distress - Head Exam Head Exam: NORMOCEPHALIC - Eye Exam Eye Exam: Normal appearance. absent: Scleral icterus - ENT Exam ENT Exam: Mucous Membranes Moist - Neck Exam Neck Exam: Normal Inspection - Respiratory Exam Respiratory Exam: Clear to Ausculation Bilateral, NORMAL BREATHING PATTERN. absent: Respiratory Distress - Cardiovascular Exam Cardiovascular Exam: +S1, +S2 - GI/Abdominal Exam GI & Abdominal Exam: Soft, Tenderness (epigastric), Normal Bowel Sounds. absent: Guarding, Organomegaly, Rebound - Extremities Exam Extremities Exam: Normal Capillary Refill. absent: Calf Tenderness, Pedal Edema - Neurological Exam Neurological Exam: Alert, Awake, Oriented x3 - Skin Skin Exam: Dry, Warm Assessment and Plan - Assessment and Plan (Free Text) Assessment: Diffuse abdominal pain, now c/o epigastric pain Bloody diarrhea X1, ct scan show Pancolitis, s/p flesigmoidoscopy: mild internal/external hemorrhoid found , sigmoid and rectal bx, negative for active inflammation Iron Deficiency Anemia, on supplements Plan: PLAN: flexsig negative for any acute pathology, no more bloody diarrhea, likley patient was constipated. Diet as tolerated , recommend, small meals, low residual to start Continue Colace BID, Continue PPI Will request for abdominal US, r/o gallstones Discuss with patient and mother at bedside, outpatient FU in our office and would benefit from elective outpatient colonoscopy Patient may be discharge from GI standpoint to FU outpatient. Case discussed and reviewed w/ Dr. Beverly covering Dr. Encarnacion. ADDENDUM: abdominal us negative for GB stones CBD 5mm, no acute findings
--- NOTE | 2018-05-09 16:12 | US ---
HISTORY: epigastric pain, r/o gallstones COMPARISON: None available. TECHNIQUE: Sonographic evaluation of the abdomen. FINDINGS: LIVER: Measures 14.2 cm in sagittal dimension and appears within normal limits of size, shape, and echotexture. No focal hepatic mass identified. The main portal vein appears patent with normal directional flow. No intrahepatic bile duct dilatation. GALLBLADDER: No gallstones. No gallbladder wall thickening. Negative sonographic Marcano's sign as assessed by the mamma logist. COMMON BILE DUCT: Measures 5 mm. PANCREAS: Not well visualized. RIGHT KIDNEY: Measures 11.0 x 2.8 x 4.5cm. No obstructing calculus or hydronephrosis identified. LEFT KIDNEY: Measures 10.5 x 5.6 x 5.5cm. No obstructing calculus or hydronephrosis identified. SPLEEN: Measures approximately 10.8 cm. AORTA: Limited views appear unremarkable. IVC: Limited views appear unremarkable. OTHER FINDINGS: None. IMPRESSION: No acute findings identified. See above.
[2018-05-09 16:41] VITALS: BP 117/72; PULSE 76; RESP 18; TEMP 97
[2018-05-13 00:02] LABS: ANCA SCREEN NEGATIVE (NEGATIVE)
== END 2018-05-09 17:14 | disposition home or self-care (01) ==
LOC: ED 16:56 → ERH 05-08 01:28 → INTOOBSV 05-08 01:28 → ERH 05-08 02:15 → 3RNO 05-08 03:58
PROVIDERS: ADMIT Internal Medicine; ATTEND Hospitalist
DX: K59.00 Constipation, unspecified (principal); K64.0 First degree hemorrhoids; K64.4 Residual hemorrhoidal skin tags; R07.81 Pleurodynia; K21.9 Gastro-esophageal reflux disease without esophagitis; Q43.8 Other specified congenital malformations of intestine; E55.9 Vitamin D deficiency, unspecified; E61.1 Iron deficiency; Z88.8 Allergy status to other drugs, medicaments and biological substances; Z80.3 Family history of malignant neoplasm of breast
CPT/HCPCS: 36415; 45331; 74177; 76700; 80053; 81001; 82550; 83615; 83735; 84100; 84484; 85025; 86021; 86671; 87086; 88305; 93005; 96361; 96365; 96367; 96375; 99285; C9113; G0378; J0696; J1885; J2270; J2405; J7030; Q9966; Q9967